=== PATIENT | female | born 1965 | race Caucasian/White ===

== ENCOUNTER 2023-05-03 11:11 | Emergency (ER) | payer OTHER, SELFPAY ==
--- NOTE | 2023-05-03 11:32 | ED.GENADULT ---
HPI - General Adult General Chief complaint: Nausea/Vomiting/Diarrhea Stated complaint: nausea, diarrhea Source: patient, RN notes reviewed and old records reviewed Mode of arrival: ambulatory Limitations: no limitations History of Present Illness HPI narrative: 58-year-old female presents to [facility] with complaints nausea, vomiting, diarrhea and abdominal pain that started this a.m.. Patient states has had 10 episodes of diarrhea and has vomited 13 times this morning. Patient states ate eggs for breakfast at home. Patient denies any other symptoms. Related Data Home Medications Medication Instructions Recorded Confirmed albuterol sulfate 90 mcg/actuation 1 puff inhalation Q4H PRN 05/26/22 05/03/23 aerosol inhaler Shortness Of Breath Or Wheezing berberine-herbal comb no.18 capsule cap PO 05/26/22 calcium carb 300 mg-D3 20 mcg-mag 1 tablet PO DAILY 05/26/22 ox 25 mg-copper plate printer 0.5 [id number] tablet (Caltrate-D3 Plus Minerals) fexofenadine 60 mg tablet (Maris 60 mg PO Q12H 05/26/22 Allergy) levothyroxine 88 mcg capsule 88 mcg PO DAILY 05/26/22 05/03/23 multivitamin 1 tablet PO DAILY 05/26/22 05/03/23 rosuvastatin 40 mg tablet 40 mg PO DAILY 05/26/22 05/03/23 semaglutide 0.25 mg or 0.5 mg (2 0.25 mg subcut WEEKLY 05/26/22 mg/1.5 mL) subcutaneous pen injector (Ozempic) Allergies Allergy/AdvReac Type Severity Reaction Status Date / Time Penicillins AdvReac Intermediate Rapid Verified 05/03/23 11:19 Heart Beat Review of Systems Constitutional: Constitutional: Reports no additional constitutional complaints, Denies body ache(s), Denies chills, Denies fatigue, Denies fever(s) and Denies headache(s) Eyes: Eyes: Reports no additional eye complaints and Denies blurry vision ENT: Reports system reviewed and no additional complaints, except as documented, Denies vertigo, Denies dizziness, Denies ear discharge, Denies otalgia, Denies facial pain, Denies headache(s), Denies nasal congestion, Denies nasal discharge, Denies sinus pain, Denies sinus pressure and Denies sore throat Cardiovascular: Cardiovascular: Reports no additional cardiovascular complaints, Denies chest pain, Denies chest pain at rest, Denies rapid heart rate and Denies dyspnea Respiratory: Respiratory: Reports no additional respiratory complaints, Denies chest congestion, Denies cough, Denies pain on inspiration, Denies pain with cough and Denies dyspnea Gastrointestinal: Gastrointestinal: Reports abdominal pain, Reports diarrhea, Reports nausea and Reports vomiting Integumentary/Breasts: Skin/Breast: Denies rash Neurologic: Reports system reviewed and no additional complaints, except as documented, Denies vertigo, Denies dizziness and Denies headache(s) Endocrine: Endocrine: Denies fatigue PMFSH Past Medical History Medical History Asthma Cyst of right breast Diabetes Thyroid disorder Family History Family History Other Asthma Cerebrovascular accident Heart disease Hypertension Malignant neoplasm of prostate Social History Social History Smoking status: Never smoker Alcohol intake: never Substance use: never Substance use type: does not use Lack of Transportation: No Lack of Food: Never True Current Housing: I Have Housing Concerned About Future Housing: No Difficulty Paying Gas/Electric Bills: No Difficulty Paying for Meds: No Currently Unemployed: No Education: Bachelor's Degree Difficulty w/ Childcare or Family Care: No Comments At the time of my signature, I reviewed and agree with the nursing past medical, surgical, social, and family history. There is no relevant family history pertinent to the patient complaint. Exam Const: General: cooperative, healthy appearing, no acute distress and well nourished Nutriti
[2023-05-03 11:33] VITALS: BP 151/80; PULSE 91; RESP 18; TEMP 35.8; O2SAT 99
[2023-05-03] MEDS: ONDANSETRON HCL ODT 4 MG TABLET PO (11:49)
== END 2023-05-03 12:04 | disposition home or self-care (01) ==
PROVIDERS: Emergency Provider Registered Nurse; PCP Family Medicine
DX: A08.4 Viral intestinal infection, unspecified (principal); Z20.822 Contact with and (suspected) exposure to COVID-19; J45.909 Unspecified asthma, uncomplicated; E11.9 Type 2 diabetes mellitus without complications; E07.9 Disorder of thyroid, unspecified
CPT/HCPCS: 87081; 87426; 87804; 87880; 99213; A9270; G0463